=== PATIENT | female | born 1935 | race Two or more races ===

== ENCOUNTER 2017-08-14 12:00 | Inpatient (IN) | payer OTHER ==
[~2017-08-14 12:00] MED LIST: ASA81 MG PO; ATENOLOL100 MG PO; ATORVASTATIN CA40 MG PO; CIPROFLOXACIN750 MG PO; CLONAZEPAM1 MG PO; COLACE100 MG PO; GABAPENTIN800 MG PO; GLIPIZIDE10 MG/BOT1 PO; ISOSORBIDE DINI30 MG PO; JANUVIA100 MG PO; LATANOPROST2.5 ML OP; LISINOPRIL40 MG PO; NEURONTIN800 MG PO; NORVASC5 MG PO; PANTOPRAZOLE SO40 MG PO; PERCOCET 5/3251 TAB PO; PLAVIX75 MG PO
[2017-08-14] MEDS ORDERED: LISINOPRIL40 MG PO (13:51)
[2017-08-14] MEDS ORDERED: PLAVIX75 MG PO (13:52)
[2017-08-22] MEDS ORDERED: DOCUSATE SODIU100 MG PO (11:23)
[2017-08-22] MEDS ORDERED: PERCOCET 5-3251 EACH PO (11:24)
[2017-08-22] MEDS ORDERED: CLONAZEPAM1 MG PO (11:24)
== END 2017-08-23 12:50 | disposition home or self-care (01) | DRG 472 ==
LOC: O/R 08-22 06:49 → RECOVERY 08-22 07:00 → PED 08-22 15:13
PROVIDERS: Orthopaedic Surgery Orthopaedic Surgery of the Spine
PROC: 0RG20A0 Fusion of 2 or more Cervical Vertebral Joints with Interbody Fusion Device, Anterior Approach, Anterior Column, Open Approach (ICD-10-PCS; 2017-08-22)
PROC: 0RT30ZZ Resection of Cervical Vertebral Disc, Open Approach (ICD-10-PCS; principal; 2017-08-22 07:00)
DX: M47.12 Other spondylosis with myelopathy, cervical region (principal); M50.023 Cervical disc disorder at C6-C7 level with myelopathy; I10 Essential (primary) hypertension; E11.9 Type 2 diabetes mellitus without complications

== ENCOUNTER 2017-08-20 16:44 | Outpatient (CLI) | payer OTHER | END 2017-08-20 16:49 | disposition home or self-care (01) | LOC: LAB 16:44 | DX: D69.49 Other primary thrombocytopenia (principal); D64.89 Other specified anemias ==